=== PATIENT | male | born 1970 | race Caucasian/White ===

== ENCOUNTER 2016-05-16 08:13 | Observation (INO) | payer SELFPAY ==
[~2016-05-16] VITALS: Ht 177.8 cm; Wt 82.0 kg
[2016-05-16] VITALS (12 sets, daily range): BP systolic 148–219; BP diastolic 74–117; PULSE 71–115; RESP 17–28; TEMP 97.9–98.8; O2SAT 95–98
[~2016-05-16 08:13] MED LIST: ALBU6.7H INH; CYCL-36 PO; LORT7.5T3 PO; PRED20 PO; Z.0.NO CURRENT MEDS; ZITH250T PO
[2016-05-16] MEDS ORDERED: ENAL5TAB PO (08:31)
--- NOTE | 2016-05-16 08:36 | PD ---
HPI Chief Complaint: Chest Pain Time Seen by Provider: 08:31 Travel History International Travel<30 days: No Contact w/Intl Traveler<30days: No Traveled to known affect area: No History of Present Illness HPI 46-year-old male with history of hypertension, presents to the ER today because of substernal chest pains which she states measures and 7 out of 10 currently, with tingling in his hands and feet. He denies any shortness of breath, vomiting, or any other symptoms. He denies being more stressed out than usual. He does not know any triggers. He states it feels like some things sitting on his chest. Modifying Factors: None Associated Signs & Symptoms: Substernal chest tightness Risk Factors: None PFSH Past Medical History Anxiety: Yes High Cholesterol: Yes Hepatitis: Yes (HEP C) Hypertension: Yes Immunizations Current: Yes Influenza Vaccination: Yes Past Surgical History Abdominal Surgery: Yes (X 3 HERNIA REPAIR) Social History Alcohol Use: Yes (states occasional, hx etoh abuse) Tobacco Use: Yes (1 PPD) Substance Use: No (hx of etoh abuse) Allergies-Medications (Allergen,Severity, Reaction): Coded Allergies: No Known Allergies (Verified , 05/16/16) Reported Meds & Prescriptions Reported Meds & Active Scripts Active Reported Enalapril (Enalapril Maleate) 5 Mg Tab 5 Mg PO DAILY Review of Systems Except as stated in HPI: all other systems reviewed are Neg Physical Exam Narrative GENERAL: Well-nourished, well-developed middle age white male patient in mild distress, mildly anxious. SKIN: Warm and dry. HEAD: Normocephalic. EYES: No scleral icterus. No injection or drainage. NECK: Supple, trachea midline. CARDIOVASCULAR: Fast rate and regular rhythm without murmurs, gallops, or rubs. Pulses are present and equal bilaterally. RESPIRATORY: Breath sounds equal bilaterally. No accessory muscle use. GASTROINTESTINAL: Abdomen soft, non-tender, nondistended. MUSCULOSKELETAL: No cyanosis, or edema. BACK: Nontender without obvious deformity. No CVA tenderness. Data Data Last Documented VS Vital Signs Date Time Temp Pulse Resp B/P Pulse Ox O2 Delivery O2 Flow Rate FiO2 05/16/16 09:10 98 Nasal Cannula 2 05/16/16 09:03 162/106 05/16/16 08:27 100 05/16/16 08:21 97.9 28 Orders Electrocardiogram (05/16/16 08:31) Ckmb (Isoenzyme) Profile (05/16/16 08:31) Complete Blood Count With Diff (05/16/16 08:31) Comprehensive Metabolic Panel (05/16/16 08:31) Magnesium (Mg) (05/16/16 08:31) Prothrombin Time / Inr (Pt) (05/16/16 08:31) Act Partial Throm Time (Ptt) (05/16/16 08:31) Troponin I (05/16/16 08:31) Chest, Single Ap (05/16/16 08:31) Ecg Monitoring (05/16/16 08:31) Bilateral Bp Monitoring (05/16/16 08:31) Iv Access Insert/Monitor (05/16/16 08:31) Oximetry (05/16/16 08:31) Oxygen Administration (05/16/16 08:31) Aspirin (Aspirin) (05/16/16 08:45) Sodium Chloride 0.9% Flush (Ns Flush) (05/16/16 08:45) Metoprolol Tartrate Inj (Lopressor Inj) (05/16/16 08:45) Nitroglycerin 2% Oint (Nitroglycerin 2% (05/16/16 09:15) Labs Laboratory Tests Test 05/16/16 08:30 White Blood Count 14.5 TH/MM3 Red Blood Count 5.29 MIL/MM3 Hemoglobin 15.3 GM/DL Hematocrit 44.7 % Mean Corpuscular Volume 84.5 FL Mean Corpuscular Hemoglobin 29.0 PG Mean Corpuscular Hemoglobin 34.3 % Concent Red Cell Distribution Width 13.7 % Platelet Count 316 TH/MM3 Mean Platelet Volume 7.9 FL Neutrophils (%) (Auto) 82.0 % Lymphocytes (%) (Auto) 10.8 % Monocytes (%) (Auto) 6.3 % Eosinophils (%) (Auto) 0.4 % Basophils (%) (Auto) 0.5 % Neutrophils # (Auto) 11.9 TH/MM3 Lymphocytes # (Auto) 1.6 TH/MM3 Monocytes # (Auto) 0.9 TH/MM3 Eosinophils # (Auto) 0.1 TH/MM3 Basophils # (Auto) 0.1 TH/MM3 CBC Comment DIFF FINAL Differential Comment Prothrombin Time 11.4 SEC Prothromb Time International 1.0 RATIO Ratio Activated Partial 28.0 SEC Thromboplast Time Sodium Level 136 MEQ/L Potassium Level 3.7 MEQ/L Chloride Level 102 MEQ/L Carbon Dioxide Level 22.8 MEQ/L Anion Gap 11 MEQ/L Blood Urea Nitrogen 15 MG/DL Creatinine 1.00 MG/DL Estimat Glomerular Filtration 80 ML/MIN Rate Random Glucose 117 MG/DL Calcium Level 9.1 MG/DL Magnesium Level 2.1 MG/DL Total Bilirubin 0.6 MG/DL Aspartate Amino Transf 13 U/L (AST/SGOT) Alanine Aminotransferase 20 U/L (ALT/SGPT) Alkaline Phosphatase 107 U/L Total Creatine Kinase 84 U/L Troponin I LESS THAN 0.02 NG/ML Total Protein 7.7 GM/DL Albumin 4.2 GM/DL MDM Medical Decision Making Medical Screen Exam Complete: Yes Emergency Medical Condition: Yes Medical Record Reviewed: Yes Interpretation(s) EKG shows sinus tachycardia at a rate of 107 bpm with no signs of acute ST-T changes. Laboratory Tests Test 05/16/16 08:30 White Blood Count 14.5 TH/MM3 (4.0-11.0) Neutrophils (%) (Auto) 82.0 % (16.0-70.0) Neutrophils # (Auto) 11.9 TH/MM3 (1.8-7.7) Estimat Glomerular Filtration 80 ML/MIN (>89) Rate Random Glucose 117 MG/DL (74-106) Aspartate Amino Transf 13 U/L (15-37) (AST/SGOT) Troponin I LESS THAN 0.02 NG/ML (0.02-0.05) Last 24 hours Impressions Chest X-Ray 05/16/16 0831 Signed Impressions: Service Date/Time: Monday, May 16, 2016 08:43 - CONCLUSION: 1. No acute findings. Tortuous aorta. Madhu Mckoy MD Differential Diagnosis Chest tightnessanxiety attack versus ACS versus dysrhythmias Narrative Course EKG did not reveal any signs of significant dysrhythmias but he does have tachycardia currently. Cardiac enzymes are negative. Patient's blood pressure is significantly elevated and he was given metoprolol. Aspirin and nitroglycerin was also given in the ER. On reevaluation 9:45 AM, chest pain is unchanged despite improved blood pressure and heart rate. At this point, my plan would be to admit the patient for further evaluation and chest pain center. Diagnosis Primary Impression: CHEST PAIN, UNSPECIFIED Admitting Information Admitting Physician Requests: Admit Bailee Colon MD May 16, 2016 08:36
[2016-05-16] MEDS ORDERED: SODIUM CHLORIDE 0.9% FLUSH 5 ML FLUSH IVF PRN ×2 (08:45→10:30)
[2016-05-16] MEDS ORDERED: ASPIRIN 325 MG TAB PO ONE (08:45)
[2016-05-16] MEDS: METOPROLOL TARTRATE 5 MG/5 ML VIAL IVS SCH ×3 (08:50→09:03)
[2016-05-16 08:54] LABS: AUTOMATED NEUTROPHIL # 11.9 TH/MM3 (1.8-7.7); BASOPHIL # 0.1 TH/MM3 (0-0.2); BASOPHIL % 0.5 % (0.0-2.0); EOSINOPHIL # 0.1 TH/MM3 (0-0.4); EOSINOPHIL % 0.4 % (0.0-4.0); HEMATOCRIT 44.7 % (39.0-51.0); HEMO FLAGS DIFF FINAL; LYMPH % 10.8 % (9.0-44.0); LYMPHOCYTE # 1.6 TH/MM3 (1.0-4.8); MEAN CELL VOLUME 84.5 FL (80.0-100.0); MEAN CORPUSCULAR HGB CONC 34.3 % (32.0-36.0); MONO % 6.3 % (0.0-8.0); PLATELET COUNT 316 TH/MM3 (150-450); RED BLOOD COUNT 5.29 MIL/MM3 (4.50-5.90); RED CELL DISTRIBUTION WIDTH 13.7 % (11.6-17.2); WHITE BLOOD COUNT 14.5 TH/MM3 (4.0-11.0)
--- NOTE | 2016-05-16 08:58 | RADRPT ---
EXAM DATE/TIME: 05/16/2016 08:43 [facility] COMPARISON: CHEST SINGLE AP, August 04, 2012, 12:46. INDICATIONS : Chest pain in center of chest and shortness of breath. MEDICAL HISTORY : None. SURGICAL HISTORY : None. ENCOUNTER: Initial ACUITY: 1 day PAIN SCORE: 8/10 LOCATION: Bilateral chest Center of chest. FINDINGS: A single view of the chest demonstrates the lungs to be symmetrically aerated without evidence of mas s, infiltrate or effusion. The cardiomediastinal contours are unremarkable except tortuous aorta. O sseous structures are intact. CONCLUSION: 1. No acute findings. Tortuous aorta. Madhu Mckoy MD on May 16, 2016 at 8:54 Board Certified Radiologist. This report was verified electronically.
[2016-05-16 09:07] LABS: PROTHROMBIN TIME - PATIENT 11.4 SEC (9.8-11.6)
[2016-05-16] MEDS ORDERED: NITROGLYCERIN 2% OINT 1 GM PACKET TOPICAL ONE (09:15)
[2016-05-16 09:19] LABS: ANION GAP 11 MEQ/L (5-15); AST (GOT) 13 U/L (15-37); BICARBONATE 22.8 MEQ/L (21.0-32.0); BLOOD UREA NITROGEN 15 MG/DL (7-18); CHLORIDE 102 MEQ/L (98-107); GLOMERULAR FILTRATION RATE 80 ML/MIN (>89); MAGNESIUM 2.1 MG/DL (1.5-2.5); POTASSIUM 3.7 MEQ/L (3.5-5.1); SODIUM (NA) 136 MEQ/L (136-145)
[2016-05-16 09:24] LABS: ALKALINE PHOSPHATASE 107 U/L (45-117); ALT (GPT) 20 U/L (12-78); TOTAL BILIRUBIN ADULT 0.6 MG/DL (0.2-1.0)
[2016-05-16 09:36] LABS: CREATINE KINASE 84 U/L (39-308)
[2016-05-16] MEDS ORDERED: SODIUM CHLOR 0.9% 1000 ML INJ 1,000 ML IV SCH (10:25)
[2016-05-16] MEDS ORDERED: PANTOPRAZOLE SOD 40 MG DELAYED RELEASE TAB PO SCH (10:30)
[2016-05-16] MEDS ORDERED: ONDANSETRON HCL 4 MG/2 ML VIAL IV PRN (10:30)
[2016-05-16] MEDS ORDERED: RESP: ALBUTEROL 2.5 MG/IPRATROPIUM 0.5 MG NEB (PRN) INH (10:30)
[2016-05-16] MEDS ORDERED: LORazepam 2 MG/ML VIAL IV PUSH ONE (10:30)
[2016-05-16] MEDS ORDERED: ACETAMINOPHEN 500 MG CPLT PO PRN (10:30)
[2016-05-16] MEDS ORDERED: ENALAPRIL MALEATE 5 MG TAB PO SCH (10:30)
[2016-05-16] MEDS ORDERED: ACETAMINOPHEN/HYDROcodone 325 MG/7.5 MG TAB PO PRN (10:30)
[2016-05-16] MEDS ORDERED: MORPHINE SULFATE 4 MG/ML INJ IV PUSH PRN (10:30)
[2016-05-16 12:10] LABS: CREATINE KINASE 60 U/L (39-308)
--- NOTE | 2016-05-16 13:19 | MH ---
cc: JOEY FONG MD DATE OF ADMISSION: 05/16/2016 DATE OF : 1970 CHIEF COMPLAINT Chest pain. HISTORY OF PRESENT ILLNESS This is a 46-year-old male who presents to the ED via private vehicle complaining of a chest discomfort that began at 7 o'clock this morning. He states it feels like someone sitting on him. No shortness of breath, nausea or diaphoresis but the discomfort is still there. He states he had a similar episode a few years ago but does not know the outcomes. I reviewed his records ____ visit. He cannot recall prior stress testing. He states he has history of hypertension, hyperlipidemia. He has been taking his blood pressure medicine but has not taken cholesterol medicine for sometime. He states he has a doctor but does not recall the name of that physician. Denies recent illnesses. Denies fevers or chills. He found nothing to worsen or improve the symptoms while he has had them. PAST MEDICAL HISTORY 1. Hypertension. 2. Hyperlipidemia, however, he takes no medication for it. 3. Denies diabetes and CAD. 4. Also history of tobacco abuse and continues to smoke one-half pack of cigarettes daily. FAMILY HISTORY His mother had a CABG. SOCIAL HISTORY The patient has smoked one-half pack of cigarettes daily for more than 35 years. Denies alcohol or illicit drugs. PAST SURGICAL HISTORY Hernia repair. ALLERGIES No known drug allergies. MEDICATIONS Enalapril 5 mg daily. REVIEW OF SYSTEMS GENERAL: Denies fevers or chills. Denies recent illnesses. HEENT: Denies headache, earache, sore throat, difficulty swallowing. CARDIOVASCULAR: Describes the discomfort as mentioned above. Denies diaphoresis. Denies sensation of heart beating rapidly or irregularly. No syncope. RESPIRATORY: Denies shortness of breath or inspirational chest discomfort. Denies coughing, wheezing or hemoptysis. GI: Denies nausea, vomiting, diarrhea, abdominal pain or blood in the stool. MUSCULOSKELETAL: Denies joint pain or edema. Denies calf pain or edema. NEUROVASCULAR: Denies headache or dizziness. ENDOCRINE: Denies polyuria or polydipsia. HEMATOLOGIC: Denies easy bruising. SKIN: Denies rash or itching. PHYSICAL EXAMINATION VITAL SIGNS: In the emergency department initially included a blood pressure of 219/105, heart rate 115, respiration 17, pulse oximetry 97% on room air and he was afebrile. Most recent vital signs include blood pressure 140/90, heart rate 71, respirations 18, pulse oximetry 97% on 2 liters nasal cannula. GENERAL: The patient is seen in the examination room in no apparent distress. He is pleasant. He speaks in clear and complete sentences. HEENT: Head is atraumatic, normocephalic. NECK: Supple without lymphadenopathy. Trachea is midline. No JVD or carotid bruits. CARDIOVASCULAR: Regular rate and rhythm without murmur, gallop or rub. RESPIRATORY: Lungs have some mild scattered wheezing bilaterally. No rales or rhonchi. No use of accessory muscles. No reproducible chest wall discomfort. GI: Abdomen is nontender, nondistended. Bowel sounds are normal. No guarding or rebound. No obvious pulsatile mass or bruit. No CVA tenderness. Strong femoral pulses bilaterally. MUSCULOSKELETAL: Patient moving upper and lower extremities freely. No joint tenderness or edema. No calf tenderness or edema, no Homans' sign. Strong pulses in upper and lower extremities. NEUROVASCULAR: The patient is alert and oriented. Cranial nerves II-XII are grossly intact. No focal deficits and speech is clear. SKIN: No rashes and turgor is normal. LABORATORY DATA CBC has a white blood cell count elevated at 14.5 with 82.0% neutrophils. Coagulation studies unremarkable. D-dimer is normal at 0.20. Complete metabolic panel has a glucose elevated mildly at 117, otherwise unremarkable. First set of cardiac enzymes are normal. IMAGING STUDIES Single view chest x-ray read by radiologist as no acute findings. EKGs Initial EKG has sinus tachycardia rate at [address]-segment depression or elevation. ASSESSMENT AND PLAN 1. Chest pain: The patient will continue to have cardiac enzymes and EKGs for ruling out purposes. He has been seen by Dr. Joey Fong of cardiology in the chest pain center. If he were to rule out then he would proceed with a Lexiscan. If the stress test were to be unremarkable he will be discharged home with instructions to followup with local physician. 2. Hypertension: The patient was quite hypertensive when he arrived in the ER. He was given IV medication which has seemed to bring it down a little bit. Will continue his current medications. He states that as far as he knows his blood pressure medicine has been controlling his hypertension. 3. Stated history of hyperlipidemia: The patient states he has taken no medicine for sometime but he does not know why. He needs to follow this up with his physician. 4. Tobacco abuse: The patient has been counseled on the importance of smoking cessation. The patient is stable at this time. He is agreeable to this plan. Dictated by: Kris Martinez PA-C MD WISAM Smith/MYA /11:59 AM /1:18 PM
[2016-05-16 14:32] LABS: CREATINE KINASE 53 U/L (39-308)
[2016-05-16] MEDS ORDERED: REGADENOSON INJ 0.4 MG/5 ML SYR ONE (15:13)
--- NOTE | 2016-05-16 16:44 | RADRPT ---
EXAM DATE/TIME: 05/16/2016 15:03 [facility] COMPARISON: No previous studies available for comparison. INDICATIONS : Substernal chest pain with tingling in extremities. Angina. DOSE: 25.8 mCi Tc99m Myoview at stress. 8.6 mCi Tc99m Myoview at rest. 0.4 mg Lexiscan STRESS SYMPTOMS: Lower chest pain and vomiting. EJECTION FRACTION: 64% MEDICAL HISTORY : Hypertension. Smoker. SURGICAL HISTORY : Inguinal hernia repair. ENCOUNTER: Initial ACUITY: 1 day PAIN SCALE: 6/10 LOCATION: Substernal chest TECHNIQUE: The patient underwent pharmacologic stress with infusion of prescribed dose. Continuous ECG tracing was monitored during stress. Gated SPECT imaging was performed after stress and conventional SPECT i maging was performed at rest. The examination was performed on a SPECT/CT scanner, both attenuation and non-corrected datasets were reviewed. FINDINGS: The best perfused myocardium is the anterior lateral wall. Moderate gut activity does obscure the inf erior wall. There is very minimal redistribution anterior septal region towards the base involving the small segm ent of myocardium of borderline significance. There is normal wall motion with ejection fraction of 64%. CONCLUSION: Minimal redistribution as described above, borderline significant.. RISK CATEGORY: Low (<1% Annual Mortality Rate) Carter Garcia MD FACR on May 16, 2016 at 16:41 Board Certified Radiologist. This report was verified electronically.
--- NOTE | 2016-05-16 17:21 | HHI.DCPOC ---
Discharge Care Plan Diagnosis: (1) Chest pain (2) Hypertension (3) Hyperlipidemia (4) Tobacco abuse Goals to Promote Your Health * To prevent worsening of your condition and complications * To maintain your health at the optimal level Directions to Meet Your Goals Take your medications as prescribed Follow your dietary instruction Follow activity as directed Keep your appointments as scheduled Take your immunizations and boosters as scheduled If your symptoms worsen call your PCP, if no PCP go to Urgent Care Center or Emergency Room Smoking is Dangerous to Your Health. Avoid second hand smoke Call the 24-hour hour crisis hotline for domestic abuse at Kris Martinez May 16, 2016 17:21
[2016-05-16] MEDS ORDERED: SODIUM CHLORIDE 0.9% FLUSH 5 ML FLUSH IVF SCH (21:00)
[2016-05-17] MEDS ORDERED: ASPIRIN 325 MG TAB PO SCH (09:00)
--- NOTE | 2016-05-17 15:46 | EKG ---
Date Performed: 05/16/2016 Time Performed: 14:04:49 PTAGE: 46 years EKG: Sinus rhythm NORMAL ECG PREVIOUS TRACING : 05/16/2016 11.35 Since previous tracing, no significant change noted DOCTOR: Timothy Fong Interpretating Date/Time 05/17/2016 15:44:39
--- NOTE | 2016-05-17 15:47 | EKG ---
Date Performed: 05/16/2016 Time Performed: 11:35:32 PTAGE: 46 years EKG: Sinus rhythm NORMAL ECG PREVIOUS TRACING : 05/16/2016 08.21 Since previous tracing, no significant change noted DOCTOR: Timothy Fong Interpretating Date/Time 05/17/2016 15:44:54
--- NOTE | 2016-05-17 16:06 | TR ---
Date Performed: 05/16/2016 Time Performed: 15:30:08 DOCTOR: Timothy Fong DRUG LIST: CLINICAL HISTORY: REASON FOR TEST: CHEST PAIN REASON FOR ENDING: OBSERVATION: CONCLUSION: Lexiscan stress test was performed under standard four minute protocol. Radionuclid e was injected one minute prior to ending the test. No electrocardiographic abormalities were present to suggest ischemia. Nuclear imaging and interpretation are pending. COMMENTS:
--- NOTE | 2016-05-18 07:15 | EKG ---
Date Performed: 05/16/2016 Time Performed: 08:21:29 PTAGE: 46 years EKG: SINUS TACHYCARDIA ABNORMAL RHYTHM ECG INTERPRETATION BASED ON A DEFAULT AGE OF 39 YEARS PREVIOUS TRACING : 08/04/2012 12.21 Compared to prior tracing no significant change DOCTOR: Facundo Mathias Interpretating Date/Time 05/18/2016 07:11:36
== END 2016-05-16 19:00 | disposition home or self-care (01) ==
LOC: NEPC 08:13 → NEDA 09:46 → NEPFCDU 12:50
PROVIDERS: ADMIT Internal Medicine Cardiovascular Disease; ATTEND Internal Medicine Cardiovascular Disease
DX: R07.9 Chest pain, unspecified (principal); R94.31 Abnormal electrocardiogram [ECG] [EKG]; I10 Essential (primary) hypertension; R06.02 Shortness of breath; F41.9 Anxiety disorder, unspecified; B19.20 Unspecified viral hepatitis C without hepatic coma; F17.210 Nicotine dependence, cigarettes, uncomplicated; Z71.6 Tobacco abuse counseling
CPT/HCPCS: 71010; 78452; 80053; 82550; 83735; 84484; 85025; 85379; 85610; 85730; 93005; 93017; 94664; 96374; 99285; A9502; G0378; J2060; J2785; J7030